=== PATIENT | male | born 1930 | race Caucasian/White ===

== ENCOUNTER → 2016-07-24 | Outpatient (CLI) | payer MEDICARE ==
[2016-07-24 08:33] LABS: Anion Gap 9 mmol/L; Blood Urea Nitrogen 27 mg/dL (9-20); Calcium 9.9 mg/dL (8.4-10.2); Carbon Dioxide 29 mmol/L (22-30); Chloride 105 mmol/L (98-107); Glucose 109 mg/dL (74-99); Non-African American GFR(MDRD) 51 (>60 ml/min/1.73 sqM); Potassium 4.7 mmol/L (3.5-5.1); Sodium 143 mmol/L (137-145)
== END ==
LOC: LABWHC1 07:33
PROVIDERS: ATTEND Nurse Practitioner Family
DX: N28.9 Disorder of kidney and ureter, unspecified (principal)
CPT/HCPCS: 36415; 80048

== ENCOUNTER → 2018-05-16 | Outpatient (CLI) | payer MEDICARE ==
--- NOTE | 2018-05-16 07:25 | US ---
EXAMINATION TYPE: US duplex aorta DATE OF EXAM: 05/16/2018 COMPARISON: NONE CLINICAL HISTORY: Z13.6 screening for cardiovascular diseases. Overlying bowel gas , large body habitus, EXAM MEASUREMENTS: portions seen, no aneurysm Abdominal Aorta: Proximal: 2.6cm Mid: 1.6cm Distal: 1.0 cm Bifurcation: 0.8 cm 0.7 cm IMPRESSION: No evidence for abdominal aortic aneurysm. Mild atheromatous changes noted.
== END | disposition home or self-care (01) ==
LOC: RADUSWWP 06:44
PROVIDERS: ATTEND Family Medicine
DX: I70.0 Atherosclerosis of aorta (principal)
CPT/HCPCS: 93979

== ENCOUNTER → 2018-07-31 | Outpatient (CLI) | payer MEDICARE ==
--- NOTE | 2018-07-31 08:31 | US ---
EXAMINATION TYPE: US kidneys/renal and bladder DATE OF EXAM: 07/31/2018 COMPARISON: NONE CLINICAL HISTORY: R31.9 Hematuria. Difficultly urinating EXAM MEASUREMENTS: Right Kidney: 11.7 x 5.2 x 5.0 cm Left Kidney: 11.4 x 5.7 x 4.9 cm Right Kidney: no hydronephrosis or masses seen Left Kidney: no hydronephrosis or masses seen Bladder: appears wnl, patient attempted to but was unable to void for post void residual volume Bilateral Jets seen: no Incidental Gallbladder: cholelithiasis . Adjacent linear heterogeneously hyperechoic. There is no evidence for hydronephrosis at this point in time. No nephrolithiasis is seen. No richi s are identified. The urinary bladder is not greatly distended. Bilateral ureteral jets are not see n. IMPRESSION: No suspicious finding is seen to account for patient's symptoms of hematuria and dysuria. Incidental gallstones and suspected fatty infiltration of liver. If symptoms persists further invest igation with CT urogram would be warranted.
--- NOTE | 2018-07-31 08:38 | US ---
EXAMINATION TYPE: US prostate transrectal DATE OF EXAM: 07/31/2018 COMPARISON: NONE CLINICAL HISTORY: R31.9 Hematuria. Difficultly urinating, hematuria This examination was performed using the transrectal probe. EXAM MEASUREMENTS: Gland Size: 4.8 x 3.4 x 5.2cm Volume: 44.5ml Predicted PSA: 5.34 Seminal vesicles are normal in initial images. Prostate gland is enlarged in size and heterogeneous i n appearance without discrete nodule identified on images saved. IMPRESSION: Findings consistent with BPH. No suspicious nodules noted. Predicted PSA = volume x 0.12 ng/ml Calculated Volume = 0.5236 x L x W x H
== END | disposition home or self-care (01) ==
LOC: RADUSMAIN 07:38
PROVIDERS: ATTEND Family Medicine
DX: R31.9 Hematuria, unspecified (principal)
CPT/HCPCS: 76770; 76872

== ENCOUNTER 2019-09-15 09:57 | Emergency (ER) | payer MEDICARE ==
[2019-09-15 10:05] VITALS: RESP 18; TEMP 98.1
[2019-09-15] MEDS ORDERED: SODIUM CHLORIDE 0.9% 500 ML 500 ML IV STA (10:06)
[2019-09-15 10:32] LABS: Basophils # (A) 0.1 k/uL (0-0.2); Basophils % (A) 0 %; Eosinophils # (A) 0.3 k/uL (0-0.7); Eosinophils % (A) 2 %; HCT 51.6 % (39.0-53.0); HGB 16.8 gm/dL (13.0-17.5); Lymphocytes # (A) 0.6 k/uL (1.0-4.8); Lymphocytes % (A) 3 %; MCH 31.7 pg (25.0-35.0); MCHC 32.5 g/dL (31.0-37.0); MCV 97.7 fL (80.0-100.0); Mean Platelet Volume 8.1; Monocytes # (A) 0.5 k/uL (0-1.0); Monocytes % (A) 3 %; Neutrophils # (A) 18.4 k/uL (1.3-7.7); Neutrophils % (A) 92 %; Platelet Count 200 k/uL (150-450); RBC 5.29 m/uL (4.30-5.90)
--- NOTE | 2019-09-15 10:35 | XR ---
EXAMINATION TYPE: XR chest 2V DATE OF EXAM: 09/15/2019 COMPARISON: 05/01/2016 HISTORY: Syncope TECHNIQUE: Frontal and lateral views of the chest are obtained. FINDINGS: Strand-like probable atelectasis at the lung bases. There is no focal air space opacity, pl eural effusion, or pneumothorax seen. There is flattening of the thumbs on the lateral view suggesti ng underlying COPD. The cardiac silhouette size is upper limits of normal size. The osseous structu res are intact. Moderate multilevel degenerative change of the spine with flowing anterior osteophyte s. IMPRESSION: Minimal bibasilar subsegmental atelectasis. Underlying COPD.
[2019-09-15 10:44] LABS: Albumin 3.8 g/dL (3.5-5.0); Calcium 9.3 mg/dL (8.4-10.2); Magnesium 1.6 mg/dL (1.6-2.3); Potassium 4.5 mmol/L (3.5-5.1); Total Protein 6.1 g/dL (6.3-8.2)
--- NOTE | 2019-09-15 10:44 | ED ---
General Adult HPI - General Chief complaint: Syncope Stated complaint: syncope Time Seen by Provider: 09/15/19 10:01 Source: patient, EMS, RN notes reviewed, old records reviewed Mode of arrival: EMS Limitations: no limitations - History of Present Illness Initial comments: 88-year-old male presents for evaluation of near syncope, lightheadedness. Unique ent states he's had several episodes over the past year where he felt very lightheaded, had 1 episode with complete syncope and collapse. Today he felt the symptoms returned he had 2 episodes this morning where he felt very lightheaded and felt that he was going to pass out. He states he did not fall, did not completely pass out. He states he had not eaten breakfast. He states this did occur with standing. He denies any associated chest pain or dyspnea. He states he felt chilled this morning but denies any preceding fever or illness. No abdominal pain. No nausea vomiting. - Related Data Home Medications Medication Instructions Recorded Confirmed Allopurinol [Zyloprim] 300 mg PO DAILY 05/01/16 05/01/16 Aspirin EC [Ecotrin Low Dose] 81 mg PO DAILY 05/01/16 05/01/16 Aspirin EC [Ecotrin] 325 mg PO ONCE 05/01/16 05/01/16 Atorvastatin [Lipitor] 20 mg PO HS 05/01/16 05/01/16 Calcium Polycarbophil [Fibercon] 625 mg PO DAILY 05/01/16 05/01/16 Cholecalciferol [Vitamin D3] 1,000 unit PO DAILY 05/01/16 05/01/16 Cinnamon Bark [Cinnamon] 1,500 mg PO BID 05/01/16 05/01/16 Fenofibrate 160 mg PO DAILY 05/01/16 05/01/16 Garlic 1 tab PO DAILY 05/01/16 05/01/16 Levothyroxine Sodium [Levoxyl] 150 mcg PO DAILY 05/01/16 05/01/16 Multivit-Min/FA/Lycopen/Lutein 1 tab PO DAILY 05/01/16 05/01/16 [Centrum Silver Tablet] [place]-3 Fatty Acids/Fish Oil [Fish 1 cap PO DAILY 05/01/16 05/01/16 Oil 1,000 mg Softgel] Ranitidine HCl [Zantac] 150 mg PO BID 12/12/16 12/12/16 Terazosin [Hytrin] 5 mg PO DAILY 05/01/16 05/01/16 Previous Rx's Medication Instructions Recorded Levofloxacin [Levaquin] 500 mg PO DAILY 5 Days #5 tab 09/15/19 Allergies Allergy/AdvReac Type Severity Reaction Status Date / Time morphine AdvReac Nausea & Verified 09/15/19 10:05 Vomiting Review of Systems ROS Statement: Those systems with pertinent positive or pertinent negative responses have been documented in the HPI. ROS Other: All systems not noted in ROS Statement are negative. Past Medical History Past Medical History: GERD/Reflux, Hyperlipidemia, Hypertension, Thyroid Disorder History of Any Multi-Drug Resistant Organisms: None Reported Past Surgical History: Appendectomy, Hernia Repair, Tonsillectomy Past Psychological History: No Psychological Hx Reported Smoking Status: Former smoker Past Alcohol Use History: None Reported Past Drug Use History: None Reported General Exam Limitations: no limitations General appearance: alert, in no apparent distress Head exam: Present: atraumatic, normocephalic Eye exam: Present: normal appearance, PERRL ENT exam: Present: normal exam Neck exam: Present: normal inspection. Absent: tenderness, meningismus Respiratory exam: Present: normal lung sounds bilaterally. Absent: respiratory distress, wheezes, rales Cardiovascular Exam: Present: regular rate, normal rhythm, systolic murmur GI/Abdominal exam: Present: soft, normal bowel sounds. Absent: distended, tenderness, guarding, rebound, rigid Extremities exam: Present: normal inspection, normal capillary refill. Absent: pedal edema Neurological exam: Present: alert, oriented X3, CN II-XII intact. Absent: motor sensory deficit Psychiatric exam: Present: normal affect, normal mood Skin exam: Present: warm, dry, intact. Absent: cyanosis, diaphoretic Course Vital Signs 09/15/19 09/15/19 09:59 11:57 Temperature 98.1 F Pulse Rate 101 H 94 Respiratory 18 18 Rate Blood Pressure 125/76 122/74 O2 Sat by Pulse 99 95 Oximetry EKG Findings - EKG Comments: EKG Findings:: EKG: Normal sinus rhythm, right bundle branch block, T-wave inv ersion in the inferior leads as well as precordial leads. Rate of 97, ID interval 136, QRS duration 124, QTC 480. No ST segment elevation. Medical Decision Making - Medical Decision Making 88-year-old male presenting with 2 episodes of near syncope this morning. Only complaint aside from this was an episode of chills. No fever. No cough no dyspnea and no chest pain no palpitations. Vital signs are stable upon arrival. EKG showing sinus rhythm with a right bundle branch block. Chest x-ray showing bilateral basilar atelectasis. Patient has a significantly elevated white blood cell count at 20 his elevated BUN of 25 consistent with degree of dehydration. Urinalysis is negative, coronavirus negative, troponin is negative. Given the atelectasis and elevated white blood cell count I would like to initiate antibiotics on an inpatient basis and admit the patient for telemetry, however he prefers outpatient follow-up with his primary care physician. Given the stability of this patient and his request I will discharge him home at this time with Levaquin, he will maintain oral hydration at home. He will return with any worsening or changing symptoms. He states he will be able to follow up with primary care physician later this week. - Lab Data Result diagrams: 09/15/19 10:15 09/15/19 10:15 Lab Results 09/15/19 09/15/19 09/15/19 Range/Units 10:15 10:15 10:15 WBC 20.0 H (3.8-10.6) k/uL RBC 5.29 (4.30-5.90) m/uL Hgb 16.8 (13.0-17.5) gm/dL Hct 51.6 (39.0-53.0) % MCV 97.7 (80.0-100.0) fL MCH 31.7 (25.0-35.0) pg MCHC 32.5 (31.0-37.0) g/dL RDW 14.0 (11.5-15.5) % Plt Count 200 (150-450) k/uL Neutrophils % 92 % Lymphocytes % 3 % Monocytes % 3 % Eosinophils % 2 % Basophils % 0 % Neutrophils # 18.4 H (1.3-7.7) k/uL Lymphocytes # 0.6 L (1.0-4.8) k/uL Monocytes # 0.5 (0-1.0) k/uL Eosinophils # 0.3 (0-0.7) k/uL Basophils # 0.1 (0-0.2) k/uL PT 10.4 (9.0-12.0) sec INR 1.0 (<1.2) APTT 20.2 L (22.0-30.0) sec Sodium 136 L (137-145) mmol/L Potassium 4.5 (3.5-5.1) mmol/L Chloride 103 (98-107) mmol/L Carbon Dioxide 25 (22-30) mmol/L Anion Gap 8 mmol/L BUN 25 H (9-20) mg/dL Creatinine 1.06 (0.66-1.25) mg/dL Est GFR (CKD-EPI)AfAm 74 (>60 ml/min/1.73 sqM) Est GFR (CKD-EPI)NonAf 64 (>60 ml/min/1.73 sqM) Glucose 142 H (74-99) mg/dL Calcium 9.3 (8.4-10.2) mg/dL Magnesium 1.6 (1.6-2.3) mg/dL Total Bilirubin 1.0 (0.2-1.3) mg/dL AST 30 (17-59) U/L ALT 23 (4-49) U/L Alkaline Phosphatase 56 (38-126) U/L Troponin I (0.000-0.034) ng/mL Total Protein 6.1 L (6.3-8.2) g/dL Albumin 3.8 (3.5-5.0) g/dL Urine Color Urine Appearance (Clear) Urine pH (5.0-8.0) Ur Specific [place] (1.001-1.035) Urine Protein (Negative) Urine Glucose (UA) (Negative) Urine Ketones (Negative) Urine Blood (Negative) Urine Nitrite (Negative) Urine Bilirubin (Negative) Urine Urobilinogen (<2.0) mg/dL Ur Leukocyte Esterase (Negative) Coronavirus (PCR) (Not Detectd) 09/15/19 09/15/19 09/15/19 Range/Units 10:15 11:37 12:00 WBC (3.8-10.6) k/uL RBC (4.30-5.90) m/uL Hgb (13.0-17.5) gm/dL Hct (39.0-53.0) % MCV (80.0-100.0) fL MCH (25.0-35.0) pg MCHC (31.0-37.0) g/dL RDW (11.5-15.5) % Plt Count (150-450) k/uL Neutrophils % % Lymphocytes % % Monocytes % % Eosinophils % % Basophils % % Neutrophils # (1.3-7.7) k/uL Lymphocytes # (1.0-4.8) k/uL Monocytes # (0-1.0) k/uL Eosinophils # (0-0.7) k/uL Basophils # (0-0.2) k/uL PT (9.0-12.0) sec INR (<1.2) APTT (22.0-30.0) sec Sodium (137-145) mmol/L Potassium (3.5-5.1) mmol/L Chloride (98-107) mmol/L Carbon Dioxide (22-30) mmol/L Anion Gap mmol/L BUN (9-20) mg/dL Creatinine (0.66-1.25) mg/dL Est GFR (CKD-EPI)AfAm (>60 ml/min/1.73 sqM) Est GFR (CKD-EPI)NonAf (>60 ml/min/1.73 sqM) Glucose (74-99) mg/dL Calcium (8.4-10.2) mg/dL Magnesium (1.6-2.3) mg/dL Total Bilirubin (0.2-1.3) mg/dL AST (17-59) U/L ALT (4-49) U/L Alkaline Phosphatase (38-126) U/L Troponin I <0.012 (0.000-0.034) ng/mL Total Protein (6.3-8.2) g/dL Albumin (3.5-5.0) g/dL Urine Color Yellow Urine Appearance Clear (Clear) Urine pH 6.0 (5.0-8.0) Ur Specific [place] 1.019 (1.001-1.035) Urine Protein Negative (Negative) Urine Glucose (UA) Negative (Negative) Urine Ketones Negative (Negative) Urine Blood Negative (Negative) Urine Nitrite Negative (Negative) Urine Bilirubin Negative (Negative) Urine Urobilinogen 2.0 (<2.0) mg/dL Ur Leukocyte Esterase Negative (Negative) Coronavirus (PCR) Not Detected (Not Detectd) Disposition Clinical Impression: Dehydration, Near syncope, Pneumonia Disposition: HOME SELF-CARE Condition: Fair Instructions (If sedation given, give patient instructions): Near Syncope (ED), Dehydration (ED), Community Acquired Pneumonia (ED) Prescriptions: Levofloxacin [Levaquin] 500 mg PO DAILY 5 Days #5 tab Is patient prescribed a controlled substance at d/c from ED?: No Referrals: Alex Dixon MD [Primary Care Provider] - 1-2 days Time of Disposition: 12:51
[2019-09-15 10:52] LABS: Prothrombin Time 10.4 sec (9.0-12.0)
[2019-09-15 11:01] LABS: Partial Thromboplastin Time 20.2 sec (22.0-30.0)
[2019-09-15] MEDS ORDERED: SODIUM CHLORIDE 0.9% 500 ML 500 ML IV ONE (11:05)
[2019-09-15 11:47] LABS: Appearance,Urine Clear (Clear); Bilirubin,Urine Negative (Negative); Blood,Urine Negative (Negative); Color,Urine Yellow; Glucose,Urine (UA) Negative (Negative); Ketones,Urine Negative (Negative); Leukocyte Esterase,Urine Negative (Negative); Nitrite,Urine Negative (Negative); Protein,Urine Negative (Negative); Specific Gravity,Urine 1.019 (1.001-1.035)
[2019-09-15 13:15] VITALS: BP 126/82; PULSE 84
== END 2019-09-15 13:14 | disposition home or self-care (01) ==
LOC: EC 09:57
DX: J18.9 Pneumonia, unspecified organism (principal); E86.0 Dehydration; R55 Syncope and collapse; I45.10 Unspecified right bundle-branch block; J98.11 Atelectasis; Z20.828 Contact with and (suspected) exposure to other viral communicable diseases; K21.9 Gastro-esophageal reflux disease without esophagitis; I10 Essential (primary) hypertension; E78.5 Hyperlipidemia, unspecified; E07.9 Disorder of thyroid, unspecified; Z79.890 Hormone replacement therapy; Z79.82 Long term (current) use of aspirin; Z79.899 Other long term (current) drug therapy; Z88.5 Allergy status to narcotic agent; Z87.891 Personal history of nicotine dependence
CPT/HCPCS: 36415; 71046; 80053; 81003; 83735; 84484; 85025; 85610; 85730; 87635; 93005; 96360; 99285

== ENCOUNTER → 2021-01-17 | Outpatient (CLI) | payer MEDICARE ==
--- NOTE | 2021-01-17 11:47 | US ---
EXAMINATION TYPE: US carotid duplex BILAT DATE OF EXAM: 01/17/2021 COMPARISON: NONE CLINICAL HISTORY: R55 SYNCOPE AND COLLAPSE. HTN controlled with meds EXAM MEASUREMENTS: RIGHT: Peak Systolic Velocity (PSV) cm/sec ----- Right CCA: 47.1 ----- Right ICA: 48.3 ----- Right ECA: 56.5 ICA/CCA ratio: 1.0 RIGHT: End Diastole cm/sec ----- Right CCA: 7.0 ----- Right ICA: 11.8 ----- Right ECA: 3.5 LEFT: Peak Systolic Velocity (PSV) cm/sec ----- Left CCA: 52.8 ----- Left ICA: 65.2 ----- Left ECA: 58.8 ICA/CCA ratio: 1.2 LEFT: End Diastole cm/sec ----- Left CCA: 10.9 ----- Left ICA: 22.5 ----- Left ECA: 0.0 VERTEBRALS (direction of flow): Right Vertebral: Antegrade Left Vertebral: Antegrade Rhythm: Arrhythmia No elevated velocities or significant stenosis. Small about of plaque in bilateral bulbs. Wall thic kening seen. IMPRESSION: No evidence for hemodynamically significant stenosis. NASCET criteria was used in interpretation of this exam? Criteria for Assigning % of Stenosis / Diameter reduction (Estimation based on the indirect measurements of the internal carotid artery velocities (ICA PSV). 1. Normal (no stenosis)=ICA PSV < 125 cm/s: ratio < 2.0: ICA EDV<40 cm/s. 2. Less than 50% stenosis=ICA PSV < 125 cm/s: ratio < 2.0: ICA EDV<40 cm/s. 3. 50 to 69% stenosis=ICA PSV of 125 to 230 cm/s: ration 2.0 ? 4.0: ICA EDV 40-100 cm/s. 4. Greater than 70% stenosis to near occlusion= ICA PSV > 230 cm/s: ratio > 4.0: ICA EDV > 100 cm/s. 5. Near occlusion= ICA PSV velocities may be low or undetectable: variable ratio and ICA EDV. 6. Total occlusion=unable to detect flow.
== END | disposition home or self-care (01) ==
LOC: RADUSWWP 10:34
PROVIDERS: ATTEND Family Medicine
DX: I65.23 Occlusion and stenosis of bilateral carotid arteries (principal); I10 Essential (primary) hypertension
CPT/HCPCS: 93880